=== PATIENT | female | born 1960 | race Hispanic/Latino ===

== ENCOUNTER → 2020-11-24 | Outpatient (CLI) | payer OTHER | END | disposition home or self-care (01) | LOC: RAH 11:34 | PROVIDERS: ATTEND Internal Medicine | DX: M19.011 Primary osteoarthritis, right shoulder (principal); M46.1 Sacroiliitis, not elsewhere classified; M19.012 Primary osteoarthritis, left shoulder | CPT/HCPCS: 72202; 73030 ==